=== PATIENT | female | born 1970 | race American Indian/Alaskan Native ===

== ENCOUNTER 2018-09-16 05:33 | Emergency (ER) | payer OTHER ==
[2018-09-16] MEDS ORDERED: DELTASONE PO ONE (05:51)
[2018-09-16] MEDS ORDERED: DUONEB *Not for PRN Use IH ONE (05:52)
[2018-09-16] MEDS ORDERED: BENADRYL IV ONE (05:52)
[2018-09-16] MEDS ORDERED: PEPCID IV ONE (05:52)
[2018-09-16] MEDS ORDERED: SOLU-Medrol IV ONE (05:55)
[2018-09-16] MEDS ORDERED: ZOFRAN IV ONE (05:55)
--- NOTE | 2018-09-16 06:32 | XRay Report ---
CHEST 1 VIEW INDICATION / CLINICAL INFORMATION: Dyspnea. COMPARISON: None available. FINDINGS: SUPPORT DEVICES: None. HEART / MEDIASTINUM: No significant abnormality. LUNGS / PLEURA: No significant pulmonary or pleural abnormality. No pneumothorax. ADDITIONAL FINDINGS: No significant additional findings. IMPRESSION: 1. No acute findings. Signer Name: Rimma Palma MD Signed: 09/16/2018 6:27 AM Workstation Name: [id number]
--- NOTE | 2018-09-16 06:45 | Emergency Department Report ---
ED General Adult HPI - General Chief complaint: Dyspnea/Respdistress Stated complaint: JEFF/SORE THROAT Time Seen by Provider: 09/16/18 06:23 Source: patient, family, RN notes reviewed Mode of arrival: Ambulatory Limitations: No Limitations - History of Present Illness Initial comments: This is a 48-year-old female. Patient is not known to this provider previously. Patient visiting from [place]. Has a history of asthma, diabetes, hypertension, morbid obesity, sleep apnea, noncompliant with CPAP, and distant history of hysterectomy. Patient presents to the ER today with a complaint of a sensation of feeling like her tonsils are on fire, started at 4:00 in the morning, shortness of breath, nausea and vomiting. Patient denies physical pain elsewhe re. She denies cough and wheezing. She endorses anxiety. Patient treated with steroids, Pepcid and Benadryl prior to my evaluation. This has improved her symptoms. She does report a history of allergies, and endorses that she is fairly sensitive. She has no history of uvulitis that she is aware of. Symptoms started approximately 4:00 in the morning -: Sudden Location: mouth Radiation: non-radiation Severity scale (0 -10): 10 Quality: burning Consistency: constant Improves with: medication Worsens with: eating - Related Data Previous Rx's Medication Instructions Recorded Last Taken Type EPINEPHrine [Epipen 2-Sean] 0.3 mg IM DAILY PRN #2 ml 09/16/18 Unknown Rx Famotidine [Pepcid] 20 mg PO BID #30 tablet 09/16/18 Unknown Rx Ondansetron [Zofran Odt] 4 mg PO Q8HR PRN #20 tab.rapdis 09/16/18 Unknown Rx diphenhydrAMINE [Benadryl] 50 mg PO Q8HR PRN #20 capsule 09/16/18 Unknown Rx methylPREDNISolone [Medrol 4MG 4 mg PO QDAY #1 tab.ds.pk 09/16/18 Unknown Rx DOSEPAK (21 tabs)] Allergies Allergy/AdvReac Type Severity Reaction Status Date / Time Fish Containing Products Allergy Anaphylaxis Verified 09/16/18 05:39 bee sting Allergy Anaphylaxis Uncoded 09/16/18 05:39 ED Review of Systems ROS: Stated complaint: JEFF/SORE THROAT Other details as noted in HPI Constitutional: denies: fever Eyes: denies: eye discharge ENT: throat pain, epistaxis (patient states her nose was bleeding prior to arrival. She indicates that it stops now) Respiratory: shortness of breath Cardiovascular: denies: chest pain Gastrointestinal: nausea, vomiting Genitourinary: denies: dysuria Musculoskeletal: arthralgia (chronic) Skin: denies: lesions Psychiatric: anxiety Hematological/Lymphatic: denies: easy bleeding ED Past Medical Hx - Past Medical History Previous Medical History?: Yes Hx Hypertension: Yes Hx Diabetes: Yes Hx Asthma: Yes - Surgical History Past Surgical History?: Yes Additional Surgical History: hysterectomy, C-Sec X 3 - Social History Smoking Status: Never Smoker Substance Use Type: Alcohol - Medications Home Medications: Home Medications Medication Instructions Recorded Confirmed Last Taken Type EPINEPHrine [Epipen 2-Sean] 0.3 mg IM DAILY PRN #2 ml 09/16/18 Unknown Rx Famotidine [Pepcid] 20 mg PO BID #30 tablet 09/16/18 Unknown Rx Ondansetron [Zofran Odt] 4 mg PO Q8HR PRN #20 tab.rapdis 09/16/18 Unknown Rx diphenhydrAMINE [Benadryl] 50 mg PO Q8HR PRN #20 capsule 09/16/18 Unknown Rx methylPREDNISolone [Medrol 4MG 4 mg PO QDAY #1 tab.ds.pk 09/16/18 Unknown Rx DOSEPAK (21 tabs)] ED Physical Exam - General Limitations: No Limitations General appearance: alert, in no apparent distress, obese - Head Head exam: Present: atraumatic, normocephalic - Eye Eye exam: Present: normal appearance, EOMI. Absent: nystagmus - ENT ENT exam: Present: normal exam, mucous membranes moist, normal external ear exam, other (patient has a boggy edematous uvula. There is no stridor. There is no elevation at the base of the tongue. The patient is speaking in full sentences. No plaques or discharge or exudate noted on the posterior oropharynx. There is no tenderness on the trachea. There is no tenderness with tracheal manipulation.). Absent: normal orophraynx - Neck Neck exam: Present: normal inspection, full ROM. Absent: tenderness, meningismus - Respiratory Respiratory exam: Present: normal lung sounds bilaterally. Absent: respiratory distress - Cardiovascular Cardiovascular Exam: Present: regular rate, normal rhythm, normal heart sounds. Absent: bradycardia, tachycardia, irregular rhythm, systolic murmur, diastolic murmur, rubs, gallop - GI/Abdominal GI/Abdominal exam: Present: soft. Absent: distended, tenderness, guarding, rebound, rigid, pulsatile mass - Extremities Exam Extremities exam: Present: normal inspection, full ROM, other (2+ pulses noted in the bilateral upper, lower extremities. Compartments soft. No long bony tenderness. The pelvis is stable.). Absent: pedal edema, joint swelling, calf tenderness - Back Exam Back exam: Present: normal inspection, full ROM. Absent: tenderness, CVA tenderness (R), CVA tenderness (L), paraspinal tenderness, vertebral tenderness - Neurological Exam Neurological exam: Present: alert, oriented X3, normal gait, other (Extraocular movements intact. Tongue midline. No facial droop. Facial sensation intact to light touch in the V1, V2, V3 distribution bilaterally. 5 and 5 strength in 4 extremities.. Sensation is intact to light touch in 4 extremities.). Absent: motor sensory deficit - Psychiatric Psychiatric exam: Present: anxious - Skin Skin exam: Present: warm, dry, intact, normal color. Absent: rash ED Course Vital Signs 09/16/18 09/16/18 09/16/18 05:45 05:49 05:54 Temperature 98 F 97.6 F Pulse Rate 114 H 105 H Pulse Rate [ Throughout] Respiratory 16 22 Rate Respiratory Rate [ Throughout] Blood Pressure Blood Pressure 219/97 165/79 [Left] O2 Sat by Pulse 100 100 99 Oximetry 09/16/18 09/16/18 09/16/18 06:00 06:16 06:30 Temperature Pulse Rate 105 H 99 H 95 H Pulse Rate [ Throughout] Respiratory 25 H 25 H 21 Rate Respiratory Rate [ Throughout] Blood Pressure 146/62 146/62 121/78 Blood Pressure [Left] O2 Sat by Pulse 95 95 Oximetry 09/16/18 09/16/18 06:35 06:43 Temperature Pulse Rate Pulse Rate [ 95 H 101 H Throughout] Respiratory Rate Respiratory 16 20 Rate [ Throughout] Blood Pressure Blood Pressure [Left] O2 Sat by Pulse Oximetry ED Medical Decision Making - Lab Data Result diagrams: 09/16/18 06:08 Vital Signs 09/16/18 09/16/18 09/16/18 05:45 05:49 05:54 Temperature 98 F 97.6 F Pulse Rate 114 H 105 H Pulse Rate [ Throughout] Respiratory 16 22 Rate Respiratory Rate [ Throughout] Blood Pressure Blood Pressure 219/97 165/79 [Left] O2 Sat by Pulse 100 100 99 Oximetry 09/16/18 09/16/18 09/16/18 06:00 06:16 06:30 Temperature Pulse Rate 105 H 99 H 95 H Pulse Rate [ Throughout] Respiratory 25 H 25 H 21 Rate Respiratory Rate [ Throughout] Blood Pressure 146/62 146/62 121/78 Blood Pressure [Left] O2 Sat by Pulse 95 95 Oximetry 09/16/18 09/16/18 06:35 06:43 Temperature Pulse Rate Pulse Rate [ 95 H 101 H Throughout] Respiratory Rate Respiratory 16 20 Rate [ Throughout] Blood Pressure Blood Pressure [Left] O2 Sat by Pulse Oximetry Lab Results 09/16/18 Range/Units 06:08 Sodium 138 (137-145) mmol/L Potassium 3.4 L (3.6-5.0) mmol/L Chloride 101.5 (98-107) mmol/L Carbon Dioxide 23 (22-30) mmol/L Anion Gap 17 mmol/L BUN 8 (7-17) mg/dL Creatinine 0.6 L (0.7-1.2) mg/dL Estimated GFR > 60 ml/min BUN/Creatinine Ratio 13 % Glucose 211 H (65-100) mg/dL Calcium 8.9 (8.4-10.2) mg/dL Total Bilirubin 0.30 (0.1-1.2) mg/dL AST 15 (5-40) units/L ALT 22 (7-56) units/L Alkaline Phosphatase 206 H (35-129) units/L Troponin T < 0.010 (0.00-0.029) ng/mL Total Protein 7.4 (6.3-8.2) g/dL Albumin 3.8 L (3.9-5) g/dL Albumin/Globulin Ratio 1.1 % - EKG Data -: EKG Interpreted by Id EKG shows normal: sinus rhythm Rate: normal - EKG Data 09/16/18 07:24 This is a sinus rhythm, 97 bpm, normal axis, QTC prolonged, poor R-wave progress ion, [place] interval within normal limits, there is no endorsement of chest pain, this is an abnormal EKG, this EKG is not consistent with ST elevation myocardial infarction. - Radiology Data Radiology results: report reviewed, image reviewed X-ray of the chest is negative for acute disease - Medical Decision Making Differential diagnosis, including but not limited to: Pharyngitis, uvulitis, allergic versus infectious Assessment and plan: 48-year-old female with probable allergic uvulitis. Her hypertension has resolved, and her tachycardia has resolved. The patient is otherwise afebrile with reassuring vital signs. Patient speaking in full sentences with no stridor or dysphonia, patient has a supple neck, and she is not currently vomiting at this time. Troponin is sent prior to my evaluation, based off of the history and physical, do not suspect acute coronary syndrome, and based off of the current objective medical literature, patient low risk for major adverse cardiac event as per the heart risk stratification 2. We will start patient empirically on steroids, epinephrine as needed, Benadryl as needed, Pepcid. I do not suspect infectious etiology at this point in time, and we have counseled patient to closely follow up with outpatient otolaryngology or primary care. Critical care attestation.: If time is entered above; I have spent that time in minutes in the direct care of this critically ill patient, excluding procedure time. ED Disposition Clinical Impression: Uvulitis Disposition: [id number] TO HOME OR SELFCARE Is pt being admited?: No Does the pt Need Aspirin: No Condition: Stable Additional Instructions: Take the steroids daily as directed, Pepcid daily as directed, Benadryl daily as needed, Zofran daily as needed. Use the epinephrine pen only if patient develops inability to speak or inability to breathe. Follow up with an otolaryngology physician within the next 3-5 days. Please note that blood pressure was elevated in the emergency room, and this should be followed up by a primary care doctor within the next month. Long-term complications of hypertension and elevated blood pressure include stroke, heart attack, disability, , paralysis, loss of quality of life. Return to the emergency room right away with new, worsening or different symptoms, or symptoms not present on the initial emergency room evaluation. Referrals: LIONEL ZURITA MD [Staff Physician] - 3-5 Days DAMARIS URENA MD [Staff Physician] - 3-5 Days
[2018-09-16 07:10] LABS: Alanine Aminotransferase 22 units/L (7-56); Albumin 3.8 g/dL (3.9-5); BUN/Creatinine Ratio 13; Blood Urea Nitrogen 8 mg/dL (7-17); Calcium 8.9 mg/dL (8.4-10.2); Hemolysis Index 5
[2018-09-16] MEDS ORDERED: K-DUR PO ONE (07:19)
[2018-09-16 07:29] LABS: Hematocrit 43.5 % (30.3-42.9); Mean Corpuscular HGB Conc 32 % (30-34); Mean Corpuscular Volume 78 fl (79-97); Platelet Count 260 K/mm3 (140-440); Red Blood Count 5.62 M/mm3 (3.65-5.03); Red Cell Distribution Width 14.9 % (13.2-15.2)
[2018-09-16] MEDS ORDERED: POTASSIUM CHLORIDE PO NR (07:35)
[2018-09-16 08:06] VITALS: BP 137/83
== END 2018-09-16 08:19 | disposition home or self-care (01) ==
LOC: ED 05:33
DX: K12.2 Cellulitis and abscess of mouth (principal); I10 Essential (primary) hypertension; E11.9 Type 2 diabetes mellitus without complications; J45.909 Unspecified asthma, uncomplicated
CPT/HCPCS: 36415; 71045; 80053; 84484; 85025; 93005; 93010; 94640; 96374; 96375; 99285; J1200; J2405; J2930